=== PATIENT | female | born 1955 | race American Indian/Alaskan Native ===

== ENCOUNTER 2017-07-08 11:24 | Emergency (ER) | payer MEDICARE ==
[2017-07-08] MEDS ORDERED: ATIVAN IV ONE (11:53)
[2017-07-08] MEDS ORDERED: ATIVAN ONE (11:53)
[2017-07-08] MEDS ORDERED: NACL 0.9% 500 ML 500 ML IV ONE (11:54)
[2017-07-08 12:23] LABS: Basophils % (Auto) 0.6 % (0.0-1.8); Eosinophils # (Auto) 0.3 K/mm3 (0.0-0.4); Eosinophils % (Auto) 5.7 % (0.0-4.3); Hematocrit 34.1 % (30.3-42.9); Hemoglobin 11.1 gm/dl (10.1-14.3); Lymphocytes # (Auto) 2.1 K/mm3 (1.2-5.4); Lymphocytes % (Auto) 40.1 % (13.4-35.0); Mean Corpuscular HGB Conc 33 % (30-34); Mean Corpuscular Hemoglobin 28 pg (28-32); Mean Corpuscular Volume 84 fl (79-97); Monocytes # (Auto) 0.7 K/mm3 (0.0-0.8); Monocytes % (Auto) 13.1 % (0.0-7.3); Platelet Count 201 K/mm3 (140-440); Red Blood Count 4.04 M/mm3 (3.65-5.03); Red Cell Distribution Width 14.8 % (13.2-15.2)
--- NOTE | 2017-07-08 12:34 | XRay Report ---
AP CHEST: HISTORY: Altered mental status AP view of the chest demonstrates a normal mediastinal and cardiac contour with clear lungs and normal bony and soft tissue structures. IMPRESSION: Unremarkable AP chest.
[2017-07-08 12:43] LABS: Albumin 3.7 g/dL (3.9-5); BUN/Creatinine Ratio 15; Blood Urea Nitrogen 12 mg/dL (7-17); Hemolysis Index 128
[2017-07-08 13:19] LABS: Alanine Aminotransferase 14 units/L (7-56)
--- NOTE | 2017-07-08 13:40 | Cat Scan Report ---
CT HEAD WITHOUT CONTRAST: HISTORY: Altered mental status. TECHNIQUE: Sequential 2.5mm CT images. COMPARISON: none. FINDINGS: Cerebral Parenchyma: Within normal limits. Cerebellum: Within normal limits. Brainstem: Within normal limits. Ventricles: Normal. Sella: Normal. Extra-axial spaces: Normal. Basal Cisterns: Normal. Intracranial Hemorrhage: None. Midline Shift: None. Calvarium: Normal. Sinuses: Normal. Mastoid Air Cells: Normal. Visualized Orbits: Normal. IMPRESSION: Cranial CT scan within normal limits.
--- NOTE | 2017-07-08 15:05 | Emergency Department Report ---
ED General Adult HPI - General Chief complaint: Adult Asthma Stated complaint: AMS Time Seen by Provider: 07/08/17 11:51 Source: patient, family, police, EMS Mode of arrival: Stretcher Limitations: Altered Mental Status - History of Present Illness Initial comments: Ms. Kang is 61-year-old female with a history of bipolar affective disorder and asthma who presents with shortness of breath and altered mental status. Her grandson was in the car when she began hyperventilating. Upon EMS arrival she was unable to speak. EMS found the patient in [facility] [place] lot. After she took a breathing treatment she continued to have breathing problems and hyperventilating. Patient then became unconscious. The grandson gave her 2 puffs of her inhaler while she was unconscious. Patient was nonverbal per EMS. They respond to pain with mumbling speech. Grandson stated that she never stopped breathing. -: Sudden - Related Data Home Medications Medication Instructions Recorded Confirmed Last Taken ALBUTEROL Inhaler [ProAir HFA 2 puff IH QID PRN 02/16/14 05/17/15 02/16/14 Inhaler] Aspirin EC [Aspirin Enteric Coated 81 mg PO QDAY 02/16/14 05/17/15 02/16/14 TAB] Fluticasone [Flonase] 1 spray NS BID 02/16/14 05/17/15 02/16/14 Fluticasone/Salmeterol [Advair 1 puff IH BID 02/16/14 05/17/15 02/16/14 Diskus 250-50 mcg] Ibuprofen [Motrin 800 MG tab] 800 mg PO TID 02/16/14 05/17/15 02/16/14 Montelukast Sodium [Singulair] 10 mg PO QAM 02/16/14 05/17/15 02/16/14 Pravastatin Sodium [Pravastatin] 20 mg PO QHS 02/16/14 05/17/15 02/15/14 Ranitidine HCl [Ranitidine 150mg 150 mg PO BID 02/16/14 05/17/15 02/16/14 Cap] Previous Rx's Medication Instructions Recorded Last Taken Type Lisinopril [Zestril TAB] 10 mg PO QDAY #30 tablet 02/19/14 Unknown Rx clonazePAM [KlonoPIN] 1 mg PO BID #30 tablet 02/19/14 Unknown Rx Diazepam Tab [Valium] 5 mg PO TID PRN #15 tablet 05/18/15 Unknown Rx Allergies Allergy/AdvReac Type Severity Reaction Status Date / Time Penicillins Allergy Hives Verified 02/16/14 13:24 tetracycline [Tetracycline] Allergy Vomiting Verified 02/16/14 13:24 tramadol Allergy Unknown Verified 02/16/14 13:26 acetaminophen AdvReac Vomiting Verified 02/16/14 13:25 [From Darvocet-N] propoxyphene napsylate AdvReac Vomiting Verified 02/16/14 13:25 [From Darvocet-N] ED Review of Systems ROS: Stated complaint: AMS Other details as noted in HPI Comment: All other systems reviewed and negative (ROS obtained after patient improved) Constitutional: denies: fever, malaise Respiratory: denies: cough Cardiovascular: denies: chest pain ED Past Medical Hx - Past Medical History Hx Hypertension: Yes Hx Congestive Heart Failure: No Hx GERD: Yes Hx Arthritis: Yes Hx Psychiatric Treatment: Yes (bipolar adhd anxiety) Hx Asthma: Yes - Surgical History Additional Surgical History: Back surgery. Tonsilectomy. Removal of ovarian cyst - Social History Smoking Status: Never Smoker Substance Use Type: Alcohol - Medications Home Medications: Home Medications Medication Instructions Recorded Confirmed Last Taken Type ALBUTEROL Inhaler [ProAir HFA 2 puff IH QID PRN 02/16/14 05/17/15 02/16/14 History Inhaler] Aspirin EC [Aspirin Enteric Coated 81 mg PO QDAY 02/16/14 05/17/15 02/16/14 History TAB] Fluticasone [Flonase] 1 spray NS BID 02/16/14 05/17/15 02/16/14 History Fluticasone/Salmeterol [Advair 1 puff IH BID 02/16/14 05/17/15 02/16/14 History Diskus 250-50 mcg] Ibuprofen [Motrin 800 MG tab] 800 mg PO TID 02/16/14 05/17/15 02/16/14 History Montelukast Sodium [Singulair] 10 mg PO QAM 02/16/14 05/17/15 02/16/14 History Pravastatin Sodium [Pravastatin] 20 mg PO QHS 02/16/14 05/17/15 02/15/14 History Ranitidine HCl [Ranitidine 150mg 150 mg PO BID 02/16/14 05/17/15 02/16/14 History Cap] Lisinopril [Zestril TAB] 10 mg PO QDAY #30 tablet 02/19/14 05/17/15 Unknown Rx clonazePAM [KlonoPIN] 1 mg PO BID #30 tablet 02/19/14 05/17/15 Unknown Rx Diazepam Tab [Valium] 5 mg PO TID PRN #15 tablet 05/18/15 Unknown Rx ED Physical Exam - General Limitations: Altered Mental Status General appearance: alert, other (unable to get words out, only able to mouth her words) - Head Head exam: Present: atraumatic, normocephalic - Eye Eye exam: Present: normal appearance, PERRL. Absent: scleral icterus, conjunctival injection, nystagmus - ENT ENT exam: Present: normal orophraynx, mucous membranes moist - Neck Neck exam: Present: normal inspection. Absent: meningismus - Respiratory Respiratory exam: Present: normal lung sounds bilaterally. Absent: respiratory distress, wheezes, rales, rhonchi - Cardiovascular Cardiovascular Exam: Present: regular rate, normal rhythm, normal heart sounds. Absent: bradycardia, tachycardia, irregular rhythm, systolic murmur, diastolic murmur, rubs, gallop - GI/Abdominal GI/Abdominal exam: Present: soft, normal bowel sounds. Absent: distended, tenderness, guarding, rebound, rigid - Extremities Exam Extremities exam: Present: normal inspection - Back Exam Back exam: Present: normal inspection - Neurological Exam Neurological exam: Present: alert, altered, other (moves her mouth and intermittently speaks words) - Psychiatric Psychiatric exam: Present: anxious, other (tearful) - Skin Skin exam: Present: warm, dry, intact, normal color. Absent: rash ED Course Vital Signs 07/08/17 14:54 Respiratory 14 Rate ED Medical Decision Making - Lab Data Result diagrams: 07/08/17 12:10 07/08/17 12:10 Laboratory Results - last 24 hr 07/08/17 07/08/17 07/08/17 12:10 12:10 12:10 WBC 5.2 RBC 4.04 Hgb 11.1 Hct 34.1 MCV 84 MCH 28 MCHC 33 RDW 14.8 Plt Count 201 Lymph % (Auto) 40.1 H [place] % (Auto) 13.1 H Eos % (Auto) 5.7 H Baso % (Auto) 0.6 Lymph # 2.1 [place] # 0.7 Eos # 0.3 Baso # 0.0 Seg Neutrophils % 40.5 Seg Neutrophils # 2.1 Sodium 140 Potassium 3.8 Chloride 100.9 Carbon Dioxide 24 Anion Gap 19 BUN 12 Creatinine 0.8 Estimated GFR > 60 BUN/Creatinine Ratio 15 Glucose 109 H Calcium 9.0 Total Bilirubin 0.20 AST 19 ALT 14 Alkaline Phosphatase 67 Troponin T < 0.010 Total Protein 7.1 Albumin 3.7 L Albumin/Globulin Ratio 1.1 Salicylates Acetaminophen Plasma/Serum Alcohol 07/08/17 07/08/17 07/08/17 12:10 12:10 12:10 WBC RBC Hgb Hct MCV MCH MCHC RDW Plt Count Lymph % (Auto) [place] % (Auto) Eos % (Auto) Baso % (Auto) Lymph # [place] # Eos # Baso # Seg Neutrophils % Seg Neutrophils # Sodium Potassium Chloride Carbon Dioxide Anion Gap BUN Creatinine Estimated GFR BUN/Creatinine Ratio Glucose Calcium Total Bilirubin AST ALT Alkaline Phosphatase Troponin T Total Protein Albumin Albumin/Globulin Ratio Salicylates < 0.3 L Acetaminophen < 15.0 Plasma/Serum Alcohol < 0.01 Vital Signs - 24 hr 07/08/17 14:54 Respiratory 14 Rate Vital Signs - 24 hr 07/08/17 14:54 Respiratory 14 Rate - Medical Decision Making Mrs. Kang presents with panic attack. I was concerned for CVA with aphasia. Her attempt to mouth words were atypical. However, the symptoms were prolonged for 20+ minutes. I consulted teleneurologist Dr. Helms who evaluated her once she returned from CT. She was lucid and conversant. She gave a full hx to the neurologist. She states that she just had a bad panic attack. She did received IV lorazepam prior to neurologist consultation. I re-evaluated patient. She is calm, cooperative and insightful. She denies SI/HI. She has depression but it has been managed by her physicians. She is ready for discharge. Critical care attestation.: If time is entered above; I have spent that time in minutes in the direct care of this critically ill patient, excluding procedure time. ED Disposition Clinical Impression: Panic attack, Bipolar disorder Disposition: - TO HOME OR SELFCARE Is pt being admited?: No Does the pt Need Aspirin: No Condition: Stable Referrals: PRIMARY CARE, [Primary Care Provider] - 3-5 Days Time of Disposition: 15:09
[2017-07-08 15:45] VITALS: BP 161/78
== END 2017-07-08 15:47 | disposition home or self-care (01) ==
LOC: ED 11:24
DX: F31.9 Bipolar disorder, unspecified (principal); F41.0 Panic disorder [episodic paroxysmal anxiety]; J45.909 Unspecified asthma, uncomplicated; K21.9 Gastro-esophageal reflux disease without esophagitis; I10 Essential (primary) hypertension; M19.90 Unspecified osteoarthritis, unspecified site; Z90.89 Acquired absence of other organs
CPT/HCPCS: 36415; 70450; 71045; 80053; 84484; 85025; 99284; G0480; J2060; 80320